=== PATIENT | female | born 1975 | race Hispanic/Latino ===

== ENCOUNTER 2024-01-21 16:51 | Emergency (ER) | payer BC ==
[~2024-01-21] VITALS: Ht 157.5 cm; Wt 72.6 kg
[2024-01-21 17:37] VITALS: BP 118/81; PULSE 89; RESP 20
[2024-01-21 17:59] LABS: BASOPHILS # (AUTO) 0.04 K/uL (0.00-0.20); BASOPHILS % (AUTO) 0.5 % (0.0-5.0); EOSINOPHILS # (AUTO) 0.18 K/uL (0.00-0.70); EOSINOPHILS % (AUTO) 2.5 % (0.0-8.0); IMMATURE GRANULOCYTE ABSOLUTE 0.02 K/uL (0-1); LYMPHOCYTES # (AUTO) 1.6 K/uL (1.0-4.8); LYMPHOCYTES % (AUTO) 22.2 % (21.0-51.0); MEAN CORPUSCULAR VOLUME 85.8 fL (79-99); MONOCYTES # (AUTO) 0.5 K/uL (0.1-1.0); MONOCYTES % (AUTO) 6.8 % (3.0-13.0); NEUTROPHILS % (AUTO) 67.7 % (40.0-77.0); PLATELET COUNT (AUTO) 246 K/uL (130-400); RED BLOOD CELL COUNT(AUTO) 4.66 MIL/uL (4.00-5.50); RED CELL DISTRIBUTION WIDTH 12.1 % (11.0-15.5); WHITE BLOOD COUNT (AUTO) 7.3 K/uL (4.8-10.8)
[2024-01-21 18:15] LABS: INR <= 0.93 (0.85-1.15)
[2024-01-21 18:16] LABS: PARTIAL THROMBOPLASTIN TIME 30.5 SEC (26.3-35.5)
[2024-01-21 18:27] LABS: POTASSIUM 3.3 mmol/L (3.5-5.1)
[2024-01-21 18:32] LABS: ALBUMIN 3.9 g/dL (3.5-5.0); BILIRUBIN,TOTAL 0.2 mg/dL (0.2-1.0); TOTAL PROTEIN, SERUM 7.7 g/dL (6.0-8.3)
[2024-01-21] MEDS: TIZANIDINE HCL 2 MG TABLET PO SCH (19:28)
[2024-01-21] MEDS: IBUPROFEN 600 MG TABLET PO ONE (19:28)
[2024-01-21] MEDS: KCL 20 MEQ ERTAB PO SCH (19:46)
== END 2024-01-21 19:59 | disposition home or self-care (01) ==
LOC: EDH 16:51
DX: M79.661 Pain in right lower leg (principal); Z88.1 Allergy status to other antibiotic agents; Z88.2 Allergy status to sulfonamides
CPT/HCPCS: 36415; 80053; 84703; 85025; 85610; 85730; 93971